=== PATIENT | male | born 1950 | race Caucasian/White ===

== ENCOUNTER → 2023-03-28 | Outpatient (CLI) | payer OTHER ==
[~2023-03-28] MED LIST: AMLO5; ASPI325; CYCL10 PO; DIPH50; NAPR500 PO; QVAR REDIHALE10.6 G2; RXCYCL10 PO; RXTRAM50 PO; TRAM50 PO; ZESTRIL40 M1
[2023-03-28 15:13] LABS: Body Fluid Crystals NEG (NEGATIVE)
[2023-03-28 15:20] LABS: RBC Count, Synovial Fluid 10000 /mm3 (0-0); WBC Count, Synovial Fluid 5520 /mm3 (0-180)
[2023-03-28 16:11] LABS: Appearance, Synovial Fluid Cloudy (Clear); Color, Synovial Fluid Dark Yellow (None-P Yel)
[2023-03-28 16:14] LABS: Monocytes/Macrophages, Synovia 13 % (0-65); Neutrophils, Synovial Fluid 87 % (0-24)
== END | disposition home or self-care (01) ==
LOC: LAB 14:48 → LAB SHORT 14:48
PROVIDERS: Family Medicine
DX: M70.21 Olecranon bursitis, right elbow (principal)
CPT/HCPCS: 87070; 87075; 87077; 87147; 87186; 87205; 89051; 89060